=== PATIENT | male | born 1930 | race Caucasian/White ===

== ENCOUNTER 2016-07-11 07:41 | Emergency (ER) | payer MEDICARE, MEDICAID ==
[~2016-07-11] VITALS: Ht 172.7 cm; Wt 63.5 kg
[~2016-07-11 07:41] MED LIST: ASPI81TA31 PO; FINA5TAB3 PO; IBUP-23 PO; SIMV10TA6 PO; TAMS-3 PO
[2016-07-11 08:27] LABS: BASOPHILS # (AUTO) 0.1 K/uL (0.0-8.0); BASOPHILS % (AUTO) 0.6 % (0.0-2.0); EOSINOPHILS # (AUTO) 0.1 K/uL (0.0-0.7); EOSINOPHILS % (AUTO) 0.9 % (0.0-7.0); HEMATOCRIT 41.8 % (40-50); LYMPHOCYTES # (AUTO) 2.3 K/UL (0.8-4.8); LYMPHOCYTES % (AUTO) 25.7 % (20.5-51.5); MEAN CORPUSCULAR HEMOGLOBIN 30.4 UUG (27.0-31.0); MEAN CORPUSCULAR HGB CONC 34 g/dL (32.0-37.0); MEAN CORPUSCULAR VOLUME 90.4 FL (82.0-92.0); MONOCYTES # (AUTO) 0.9 K/UL (0.1-1.30); MONOCYTES % (AUTO) 9.7 % (0.0-11.0); NEUTROPHILS # (AUTO) 5.4 K/UL (1.8-8.9); NEUTROPHILS % (AUTO) 63.1 % (38.5-71.5); PLATELET COUNT (AUTO) 239 K/UL (150-450); RED BLOOD CELL COUNT(AUTO) 4.62 MIL/UL (4.7-6.1); WHITE BLOOD COUNT (AUTO) 8.8 K/UL (4.0-11.2)
--- NOTE | 2016-07-11 08:28 | NUR ---
Patient was seen by Dr Chandra for urinary retention. other RN placed fields, urinary output was >1000ml. Dr Chandra notified.
[2016-07-11 08:36] LABS: *BILIRUBIN,URIN NEGATIVE (NEGATIVE); *BLOOD, URINE 2+ (NEGATIVE); *CLARITY,URINE CLEAR (CLEAR); *COLOR,URINE YELLOW (YELLOW); *KETONES,URINE NEGATIVE (NEGATIVE); *PROTEIN,URINE NEGATIVE (NEGATIVE); *UROBILINOGEN,URINE 0.2 E.U./dl (NORMAL); LEUKOCYTE ESTERASE ,URINE NEGATIVE (NEGATIVE); NITRITE, URINE NEGATIVE (NEGATIVE); PH,URINE 7.5 (5.0-8.0); UGLUCOSE NEGATIVE (NEGATIVE)
[2016-07-11 08:37] LABS: CARBON DIOXIDE 32 mmol/L (21-32); CHLORIDE 102 mmol/L (98-107); CREATININE 0.9 mg/dL (0.6-1.3); GLUCOSE 99 mg/dL (74-106); POTASSIUM 4.1 mmol/L (3.5-5.1); UREA NITROGEN, BLOOD 11 mg/dL (7-18)
[2016-07-11 08:48] LABS: ALANINE AMINOTRANSFERASE 18 U/L (16-63); ALKALINE PHOSPHATASE 71 U/L (50-136); ASPARTATE AMINOTRANSFERASE 23 U/L (15-37); BILIRUBIN,TOTAL 1.2 mg/dL (0.2-1.0); TOTAL PROTEIN, SERUM 7.7 g/dL (6.4-8.2)
[2016-07-11 08:49] LABS: BACTERIA,URINE NONE SEEN /HPF (NONE SEEN); RBC,URINE TNTC /HPF (0-3); SQUAMOUS EPITHELIAL CELL,UR FEW /HPF (NONE SEEN); WBC,URINE 0-3 /HPF (0-3)
--- NOTE | 2016-07-11 09:05 | NUR ---
Patient discharged to home in stable conditon with . Written and verbal after care instructions given. Patient and verbalizes understanding of instructions. Verbal ACI was given by Maria G RN ( in [facility]). Stressed follow up with pmd/urology, pt was given referral for Dr Joyner.
== END 2016-07-11 09:07 | disposition home or self-care (01) ==
LOC: ER 07:41
DX: R33.9 Retention of urine, unspecified (principal); Z90.49 Acquired absence of other specified parts of digestive tract
CPT/HCPCS: 36415; 51702; 85025; A4663